=== PATIENT | male | born 1990 | race Caucasian/White ===

== ENCOUNTER 2017-01-31 17:11 | Day surgery (SDC) | payer OTHER ==
[~2017-01-31] VITALS: Ht 165.1 cm; Wt 78.0 kg
--- NOTE | ~2017-01-31 | HP ---
PATIENT'S NAME: FELTON ZUÑIGA [facility] AGE: 26 Y [address] ROOM: [place] [address] LOCATION: GPED ADMIT DATE: 01/31/2017 History & Physical DISCHARGE DATE: FAMILY PHYSICIAN: PHYSICIAN, NO ATTENDING PHYSICIAN: Ivonne GRIMES (Dimas) DATE OF SERVICE: CHIEF COMPLAINT: Abdominal pain. HISTORY OF PRESENT ILLNESS: As you well know, Felton is a very pleasant 26-year-old gentleman who started having generalized abdominal pain. On evening, he took some Tums, had a bowel movement, and felt slightly better. On Wednesday evening, the symptoms recurred and has persisted through that time. The symptoms have also moved and localized down to the right lower quadrant where he complains of moderate and constant type pain that is pressure-like in quality. No associated fevers or chills. He has had some associated anorexia. Last thing he ate was some oatmeal this morning. He had a normal bowel movement a couple of days ago. No issues with urination. He has never had pain of this type before. He came and saw his primary care physician, who ordered a CT scan which was consistent with appendicitis and he was sent to the ER for further management. Here he has no other complaints except for as described above. ALLERGIES: ERYTHROMYCIN. HE IS NOT SURE WHAT EXACTLY THE ALLERGY IS. MEDICATIONS: He takes no chronic medications. PAST MEDICAL HISTORY: He denies any chronic cardiac, pulmonary, hepatic, or renal disease or dysfunction. PAST SURGICAL HISTORY: None. SOCIAL HISTORY: Denies tobacco or alcohol use or abuse. He is and has a daughter who is turning 1-year-old this week that both accompany him here today. 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 REVIEW OF SYSTEMS: PATIENT'S NAME: FELTON ZUÑIGA [facility] AGE: 26 Y [address] ROOM: [place] [address] LOCATION: GPED ADMIT DATE: 01/31/2017 History & Physical DISCHARGE DATE: FAMILY PHYSICIAN: PHYSICIAN, NO ATTENDING PHYSICIAN: Ivonne GRIMES) Denies any chest pain, shortness of breath, cough, or genitourinary symptoms. Otherwise, a full 10-point review of systems was discussed with the patient and was negative except for as discussed above. FAMILY HISTORY: Noncontributory. Denies any history of inflammatory bowel disease or colorectal malignancies or issues with anesthesia. PHYSICAL EXAMINATION: GENERAL: A 26-year-old gentleman, in no apparent distress. Alert and oriented x3. VITAL SIGNS: Afebrile. Vital signs are stable. HEENT: Sclerae are anicteric. NECK: Supple. Trachea is midline. HEART: Rate and rhythm regular. LUNGS: Breathing nonlabored. ABDOMEN: Soft, nondistended, and tender to palpation in the right lower quadrant with positive guarding in the right lower quadrant. Positive Rovsing sign. Negative psoas sign. EXTREMITIES: Bilateral lower extremities are warm. Brisk capillary refill without significant edema. No obvious calf tenderness or swelling. No obvious skin lesions or rashes. IMAGING STUDIES: Radiology Review: A CT scan of the abdomen and pelvis shows findings consistent with acute or early appendicitis. No free fluid. No free air. No evidence of small-bowel obstruction. No other acute abnormalities. ASSESSMENT AND PLAN: A 26-year-old with acute appendicitis. I talked with the options of surgical versus conservative therapy. Discussed about the risks of surgery including infection, bleeding, damage to surrounding structures, conversion to open amongst others. He and his had all their questions answered to their satisfaction and wished to proceed as above. We will give him some IV fluids, IV antibiotics, then take him to the OR for a laparoscopic appendectomy. MD ROCYK PIÑA (JAKE)/sebastián /[id number] D: T: [id number] HISTORY & PHYSICAL
--- NOTE | ~2017-01-31 | DS ---
PATIENT'S NAME: FELTON ZUÑIGA [facility] AGE: 26 Y [address] ROOM: [facility] [place] [address] LOCATION: GPED ADMIT DATE: 01/31/2017 Discharge Summary DISCHARGE DATE: 02/01/2017 FAMILY PHYSICIAN: , SYDNEE ATTENDING PHYSICIAN: Ivonne Nichols(Dimas) FINAL DIAGNOSIS: Acute appendicitis. HOSPITAL COURSE: Felton was admitted on 01/31/2017 with 3-day history of generalized abdominal pain that was clinically and radiographically suspicious for acute appendicitis. He went to the OR for a laparoscopic appendectomy, which was uncomplicated. The following morning, he was voiding independently, he was tolerating his p.o. pain medication, and he was voiding and ambulating independently and was ready for discharge. He was given appropriate followup discharge instructions and a prescription for narcotic pain medication. FINAL DIAGNOSIS: Acute appendicitis. TEENA) MD ROCKY NICHOLS/sebastián /[id number] d: t: 02/02/17 0130, DISCHARGE SUMMARY
--- NOTE | ~2017-01-31 | OR ---
PATIENT'S NAME: GIO ZUÑIGA [facility] AGE: 26 Y [address] ROOM: [place] [address] LOCATION: GPED ADMIT DATE: 01/31/2017 OR/Procedure Report DISCHARGE DATE: FAMILY PHYSICIAN: PHYSICIAN, NO ATTENDING PHYSICIAN: Ivonne NICHOLS) SURGEON: Ivonne Nichols MD (Jake) COLD PATCHER: DATE OF PROCEDURE: 01/31/2017 PREOPERATIVE DIAGNOSIS: Acute appendicitis. POSTOPERATIVE DIAGNOSIS: Acute appendicitis. PROCEDURE: Laparoscopic appendectomy. ANESTHESIA: General endotracheal anesthesia. COMPLICATIONS: None. ESTIMATED BLOOD LOSS: Minimal. FINDINGS: Early acute nonperforated appendicitis. DRAINS: None. SPECIMENS: Appendix. INDICATIONS FOR PROCEDURE: A 26-year-old gentleman with 3 days history of abdominal pain clinically and radiographically consistent with acute appendicitis presents here today for laparoscopic appendectomy. PQRI: A single gram of Invanz IV was given within 1 hour prior to surgery as a single dose only. SCDs were placed on prior to the case and were on throughout. Chemical prophylaxis not necessary for this very brief completely ambulatory procedure. DETAILS OF PROCEDURE: After informed consent was obtained, the patient was brought to the operating room and placed in supine position. Left arm was tucked. All pressure points were padded. General endotracheal anesthesia was induced. The abdomen was prepped and draped in usual sterile fashion. A supraumbilical 5-mm incision was made after 0.5% Marcaine with epi was introduced into the wound. A 5-mm bladeless trocar was introduced into the abdominal cavity under direct visualization from the Optiview port by 5-mm 0- degree scope. Pneumoperitoneum was achieved. Abdominal cavity was inspected. No other abnormalities could be noted. The patient was placed in reverse PATIENT'S NAME: GIO ZUÑIGA [facility] AGE: 26 Y [address] ROOM: [place] [address] LOCATION: GPED ADMIT DATE: 01/31/2017 OR/Procedure Report DISCHARGE DATE: FAMILY PHYSICIAN: PHYSICIAN, NO ATTENDING PHYSICIAN: Ivonne NICHOLS) Trendelenburg with [id number] position. An additional 11 mm suprapubic and left lower quadrant 5-mm trocar were introduced in the same fashion as above under direct visualization from the laparoscope. The abdominal cavity was inspected. No other abnormalities could be noted. The appendix was identified and noted to be acutely inflamed. It was elevated towards the anterior abdominal wall. The soft tissue attachments to the surrounding tissues were bluntly dissected away occasionally with sharp dissection. The appendix was elevated towards the anterior abdominal wall. A window was created at the base of the mesoappendix with a [place] dissector and an Graf 45-mm stapler with a GI load was then fired across the base of the appendix at the junction with the cecum. The staple line was carefully inspected. It was noted to be intact and hemostatic. An additional 2 firings of the vascular loads on the same stapler were then used to takedown the long mesoappendix and the appendix was placed in the Endopouch and removed via the suprapubic trocar site. Trocar was reintroduced and pneumoperitoneum was achieved. Hemostasis was ensured. The abdominal cavity was thoroughly irrigated through all quadrants of the abdominal cavity and the staple lines were carefully inspected and were noted to be intact and hemostatic. No other abnormalities were noted. An 0 Vicryl suture on a suture passer was then used to close the suprapubic trocar site under direct visualization from the laparoscope, but no bleeding could be noted. Left lower quadrant trocar site was removed under direct visualization from the laparoscope. No bleeding could be noted. Pneumoperitoneum was decompressed. Last trocar was removed and all the wounds were closed with 4-0 Monocryl subcuticular suture. Sterile dressing was applied. The patient was awakened and taken back to recovery in stable condition. MD ROCKY PIÑA (JAKE)/sebastián /[id number] d: t: 02/01/17 0220, OPERATIVE SUMMARY
[2017-02-01] MEDS ORDERED: PERCOCET 5-3251 EACH PO (10:46)
== END 2017-02-01 13:11 | disposition disaster alternative care site (69) ==
LOC: GMED 17:11 → GPED 17:56 → GMED 17:56 → GPED 17:56 → GSDC 17:56 → GPED 02-01 13:11 → GSDC 02-01 13:11
PROC: 0DTJ4ZZ Resection of Appendix, Percutaneous Endoscopic Approach (ICD-10-PCS; principal; 2017-01-31)
DX: K35.80 Unspecified acute appendicitis (principal); Z23 Encounter for immunization
CPT/HCPCS: G0008; J1200; J1335; J1885; J7030

== ENCOUNTER → 2017-01-31 | Outpatient (CLI) | payer OTHER ==
[~2017-01-31] MED LIST: PERCOCET 5-3251 EACH PO
== END ==
LOC: GMED 15:38
DX: R10.31 Right lower quadrant pain (principal); K37 Unspecified appendicitis